=== PATIENT | male | born 1965 | race Caucasian/White ===

== ENCOUNTER 2021-09-18 07:30 | Emergency (ER) | payer OTHER ==
[2021-09-18 08:42] LABS: HEMOGLOBIN 14.6 gm/dl (14.0-17.5); RED BLOOD COUNT 4.88 M/UL (4.20-5.50); WHITE BLOOD COUNT 5.1 K/UL (4.5-11.0)
[2021-09-18 09:19] LABS: BUN/CREATININE RATIO 14 (0-10)
== END 2021-09-18 10:58 | disposition home or self-care (01) ==
LOC: ER1 07:30
PROVIDERS: Family Medicine
DX: H92.01 Otalgia, right ear (principal); M25.511 Pain in right shoulder; M54.2 Cervicalgia; G89.29 Other chronic pain
CPT/HCPCS: 70491; 80048; 85025; 86140; 99284; Q9967

== ENCOUNTER → 2021-10-02 | Outpatient (CLI) | payer BC | LOC: EXRD 10:52 | DX: M54.2 Cervicalgia (principal); M25.511 Pain in right shoulder | CPT/HCPCS: 72040; 73030 ==

== ENCOUNTER → 2021-10-31 | Day surgery (SDC) | payer OTHER ==
[~2021-10-31] MED LIST: HYDROCODON-ACE1 EAC4 PO; IBUPROFEN800 MG PO; NASACORT16.9 ML; PHENERGAN 12.12.5 M1 PO; PRILOSEC OTC20 MG PO; ROBAXIN 750 MG750 MG PO
== END | disposition home or self-care (01) ==
LOC: OR 05:32
DX: D17.9 Benign lipomatous neoplasm, unspecified (principal)
CPT/HCPCS: J0690; J1100; J2001; J2250; J2405; J2704; J3010

== ENCOUNTER → 2021-11-06 | Outpatient (CLI) | payer OTHER | LOC: KOH-I 08:11 | DX: R51.9 Headache, unspecified (principal); M48.02 Spinal stenosis, cervical region; M50.31 Other cervical disc degeneration, high cervical region | CPT/HCPCS: 72141 ==

== ENCOUNTER → 2021-11-25 | Outpatient (CLI) | payer OTHER | LOC: MRI 09:17 | DX: R51.9 Headache, unspecified (principal); Z86.73 Personal history of transient ischemic attack (TIA), and cerebral infarction without residual deficits | CPT/HCPCS: 70553; A9577 ==